=== PATIENT | female | born 1990 ===

== ENCOUNTER 2021-05-05 19:44 | Emergency (ER) | payer SELFPAY ==
--- OUTSIDE RECORDS SUMMARY | 2021-05-05 19:46 | XMS REPORT | Continuity of Care Document ---
:1990 Author Organization [facility] t Address [address] [place] [address] Care Team Providers Name Role Phone Raymond VILLALTA Primary Care Physician Unavailable Sarah CALIX Attending Clinician Unavailable Lab, Fam Pob I Attending Clinician Unavailable Annetta BRIONES Attending Clinician ANNETTA Attending Clinician Unavailable Payers Payer Name Policy Type Policy Number Effective Date Expiration Date S boby GARNETTETTER FROM [id number] 2019 [facility] 00:00:00 Problems This patient has no known problems. Allergies, Adverse Reactions, Alerts Allergy Allergy Status Severity Reaction(s) Onset Inactive Treating Comm ents Source Name Type Date Date Clinician NO KNOWN Drug Active Univers ALLERGIE Class it[facility] of [facility] Social History Social Habit Start Date Stop Date Quantity Comments Source Sex Assigned At Uni versity [facility] Smoking Status Start Date Stop Date Source Unknown if ever smoked [facility] Medications This patient has no known medications. Procedures This patient has no known procedures. Encounters Start End Encounter Admission Attending Care Care Encounter Source Date/Time Date/Time Type Type Clinicians Facility Department ID 2020-08-07 2020-08-07 Outpatient Lorraine CALIX [facility] [id number] Univers 11:10:00 11:11:07 DEVON [facility] 2020-07-10 2020-07-10 Outpatient [facility] [id number] Univers 11:10:00 11:10:00 [facility] 2019-09-19 2019-09-19 Laboratory Lab, Adc Fam Pob I [facility] 1.2. [id number] Univers 14:37:58 14:57:58 Only Annetta [facility] [id number] [facility] [place] [id number] Ike as Profp[employer] [id number] [address] 2019-09-19 2019-09-19 Outpatient Lorraine LITTLEJOHN [facility] [id number] [facility] 14:40:00 14:40:00 BELEN fonseca [facility] Results This patient has no known results.
--- NOTE | 2021-05-05 21:48 | RAD REPORT ---
EXAM DESCRIPTION: RAD - Foot Left 3 View - 05/05/2021 9:25 pm CLINICAL HISTORY: Pain;Swelling COMPARISON: No comparisons FINDINGS: No acute fracture. No malalignment. No significant focal degenerative changes. IMPRESSION: No acute osseous abnormality involving the left foot.
--- NOTE | 2021-05-05 22:05 | ER ---
Nurse's Notes [facility] Name: Melonie Gilbert Age: 31 yrs Sex: Female : 1990 Arrival Date: 05/05/2021 Time: 19:44 Bed 11 Private MD: Diagnosis: Other sprain of left foot Presentation: 05/05 21:02 Chief complaint: Patient states: she stepped off a curb last night injuring her left bb foot she has been icing it all day but it is still swollen denies pain to ankle. Coronavirus screen: At this time, the client does not indicate any symptoms associated with coronavirus-19. Ebola Screen: No symptoms or risks identified at this time. Initial Sepsis Screen: Does the patient meet any 2 criteria? No. Patient's initial sepsis screen is negative. Does the patient have a suspected source of infection? No. Patient's initial sepsis screen is negative. Risk Assessment: Do you want to hurt yourself or someone else? Patient reports no desire to harm self or others. Onset of symptoms was May 04, 2021. 21:02 Method Of Arrival: Ambulatory bb 21:02 Acuity: JASEN 4 bb Triage Assessment: 21:04 General: Appears in no apparent distress. uncomfortable, Behavior is calm, cooperative. bb Pain: Complains of pain in left foot Pain currently is 3 out of 10 on a pain scale. Neuro: Level of Consciousness is awake, alert, obeys commands, Oriented to person, place, time, situation. Cardiovascular: No deficits noted. Respiratory: Respiratory effort is even, unlabored, Respiratory pattern is regular. GI: No signs and/or symptoms were reported involving the gastrointestinal system. Derm: Skin is pink, warm \T\ dry. Musculoskeletal: Circulation, motion, and sensation intact. Swelling present in left foot. Injury Description: edema and erythema to top/side of left foot. 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 - Social history:: Smoking status: Patient denies any tobacco usage or history of. Screenin:17 Abuse screen: Denies threats or abuse. Nutritional screening: No deficits noted. bb Tuberculosis screening: No symptoms or risk factors identified. Fall Risk None identified. Assessment: 21:06 Reassessment: No changes from previously documented assessment. Patient is alert, bb oriented x 3, equal unlabored respirations, skin warm/dry/pink. see triage assessment. 21:19 Reassessment: left foot elevated on pillow and ice bag applied. bb 22:12 Reassessment: Patient is alert, oriented x 3, equal unlabored respirations, skin bb warm/dry/pink. pt verbalized understanding of and agrees to plan of care discharge instructions given pt ambulated to exit. Vital Signs: 21:02 BP 126 / 89; Pulse 77; Resp 16 S; Temp 97.5(TE); Pulse Ox 100% on R/A; Weight 76.2 kg bb (R); Height 5 ft. 5 in. (165.10 cm) (R); Pain 3/10; 21:02 Body Mass Index 27.96 (76.20 kg, 165.10 cm) bb ED Course: 19:44 Patient arrived in ED. [email or web address] 21:04 Triage completed. bb 21:04 Arm band placed on Patient placed in an exam room, on a stretcher, on pulse oximetry. bb X-ray ordered. 21:14 Deshawn Lynn NP is PHCP. pm1 21:14 Jonnie Nguyen MD is Attending Physician. pm1 21:17 Stacey Varela RN is Primary Nurse. bb 21:17 Patient has correct armband on for positive identification. bb 21:17 No provider procedures requiring assistance completed. Patient did not have IV access bb during this emergency room visit. 21:25 XRAY Foot LEFT 3 View In Process Unspecified. EDMS Administered Medications: No medications were administered Outcome: 22:05 Discharge ordered by . pm1 22:13 Discharged to home ambulatory. bb 22:13 Condition: stable 22:13 Discharge instructions given to patient, Instructed on discharge instructions, follow up and referral plans. Demonstrated understanding of instructions, follow-up care. 22:13 Patient left the ED. bb Signatures: Dispatcher [employer] EDMS Stacey Varela RN RN bb Deshawn Lynn NP HEALTHCARE FACILITY ADMINISTRATOR pm1 Cleopatra Roberts kc5
--- NOTE | 2021-05-05 22:05 | EDPHYS ---
Physician Documentation [facility] Name: Melonie Gilbert Age: 31 yrs Sex: Female : 1990 Arrival Date: 05/05/2021 Time: 19:44 Bed 11 Private MD: ED Physician Jonnie Nguyen HPI: 05/05 21:17 This 31 yrs old Female presents to ER via Ambulatory with complaints of Foot Injury. pm1 21:17 The patient presents with pain, that is acute, swelling. The complaints affect the pm1 lateral aspect of left foot. Context: The problem was sustained outdoors, resulted from stepping off curb and injuring her left foot. No ankle pain present. Onset: The symptoms/episode began/occurred yesterday. Modifying factors: The symptoms are alleviated by elevating leg, the symptoms are aggravated by weight bearing. Associated signs and symptoms: Pertinent positives: swelling, Pertinent negatives numbness, tingling. Treatment prior to arrival includes: icing the affected extremity. Severity of symptoms: in the emergency department the symptoms are unchanged. The patient has not experienced similar symptoms in the past. The patient has not recently seen a physician. 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 - Social history:: Smoking status: Patient denies any tobacco usage or history of. ROS: 21:17 Constitutional: Negative for fever, chills, and weight loss, Cardiovascular: Negative pm1 for chest pain, palpitations, and edema, Respiratory: Negative for shortness of breath, cough, wheezing, and pleuritic chest pain. 21:17 Skin: Negative for injury, rash, and discoloration, Neuro: Negative for headache, weakness, numbness, tingling, and seizure. 21:17 MS/extremity: Positive for pain, swelling, tenderness, of the lateral aspect of left foot, Negative for decreased range of motion, deformity. 21:17 All other systems are negative. Exam: 21:17 Constitutional: This is a well developed, well nourished patient who is awake, alert, pm1 and in no acute distress. Head/Face: Normocephalic, atraumatic. 21:17 Back: No spinal tenderness. No costovertebral tenderness. Full range of motion. Skin: Warm, dry with normal turgor. Normal color with no rashes, no lesions, and no evidence of cellulitis. 21:17 Cardiovascular: Exam negative for acute changes, Rate: normal, Rhythm: regular, Pulses: no pulse deficits are appreciated. 21:17 Respiratory: Exam negative for acute changes, respiratory distress, shortness of breath. 21:17 Musculoskeletal/extremity: Extremities: grossly normal except: noted in the lateral aspect of left foot: ecchymosis, swelling, tenderness. 21:17 Neuro: Exam negative for acute changes, Orientation: is normal, Mentation: is normal, Motor: moves all fours. Vital Signs: 21:02 BP 126 / 89; Pulse 77; Resp 16 S; Temp 97.5(TE); Pulse Ox 100% on R/A; Weight 76.2 kg bb (R); Height 5 ft. 5 in. (165.10 cm) (R); Pain 3/10; 21:02 Body Mass Index 27.96 (76.20 kg, 165.10 cm) bb MDM: 21:14 Patient medically screened. pm1 22:04 Data reviewed: vital signs. Data interpreted: Pulse oximetry: on room air is 100 %. pm1 Interpretation: normal. Counseling: I had a detailed discussion with the patient and/or guardian regarding: the historical points, exam findings, and any diagnostic results supporting the discharge/admit diagnosis, radiology results, the need for outpatient follow up, to return to the emergency department if symptoms worsen or persist or if there are any questions or concerns that arise at home. 22:04 ED course: Patient offered crutches but she is able to walk on her foot and she prefers pm1 to alk on it instead of using crutches. Patient was also offered pain medications on initial assessment but she refused. 05/05 21:06 Order name: XRAY Foot LEFT 3 View; Complete Time: 21:53 bb 05/05 21:17 Order name: Ice pack; Complete Time: 21:21 pm1 Administered Medications: No medications were administered Disposition Summary: 05/05/21 22:05 Discharge Ordered Location: Home pm1 Problem: new pm1 Symptoms: have improved pm1 Condition: Stable pm1 Diagnosis - Other sprain of left foot pm1 Followup: pm1 - With: Emergency Department - When: As needed - Reason: Worsening of condition Followup: pm1 - With: Private Physician - When: 2 - 3 days - Reason: Recheck today's complaints, Continuance of care, Re-evaluation by your physician Discharge Instructions: - Discharge Summary Sheet pm1 - Foot Sprain pm1 Forms: - Medication Reconciliation Form pm1 - Thank You Letter pm1 - Antibiotic Education pm1 - Prescription Opioid Use pm1 Addendum: 05/07/2021 06:21 Co-signature as Attending Physician, Jonnie Nguyen MD I agree with the assessment and c ahumada plan of care. Signatures: Dispatcher [employer] Jonnie Salas MD MD cha Ballard, Brenda, RN RN Deshawn Elias, HEIDI DISPLAY SPECIALIST pm1
[2021-05-05 22:26] VITALS: BP 126/89; TEMP 97.5; O2SAT 100
== END 2021-05-05 22:13 | disposition home or self-care (01) ==
LOC: ER 19:44
DX: S93.692A Other sprain of left foot, initial encounter (principal)
CPT/HCPCS: 99283